=== PATIENT | male | born 1980 | race Caucasian/White ===

== ENCOUNTER 2018-01-25 18:00 | Inpatient (IN) | payer BC, OTHER ==
[2018-01-25] MEDS ORDERED: Albuterol/Ipratropium 3.0-0.5 MG/3 ML Neb Soln NEB ONE (18:37)
--- NOTE | 2018-01-25 18:41 | EDM.PDOC ---
ED HPI GENERAL MEDICAL PROBLEM - General Chief Complaint: Respiratory Problem Stated Complaint: cough, fever, SOB Time Seen by Provider: 01/25/18 18:29 Source of Information: Reports: Patient History Limitations: Reports: No Limitations - History of Present Illness INITIAL COMMENTS - FREE TEXT/NARRATIVE: Patient presents with cough, fever, dyspnea and weakness that started 5 days ago and has progressed and worsened steadily since then. He has a 20 year smoking history but quit smoking 10 days ago[address]ies street drug use since high school days. He has had pneumonia two years ago which required a week in the hospital. Denies any chronic lung problems. He has type I DM and has been on insulin since age 6. - Related Data Allergies Allergy/AdvReac Type Severity Reaction Status Date / Time No Known Drug Allergies Allergy Cannot Verified 01/25/18 18:15 Remember Home Meds: Home Meds Insulin Aspart [Novolog] 100 unit SQ ASDIRECTED 01/25/18 [History] Insulin NPH Human Isophane [Novolin N] 10 unit SQ BID 01/25/18 [History] Past Medical History HEENT History: Reports: Hard of Hearing Respiratory History: Reports: Asthma, Other (See Below) Other Respiratory History: Hx of fiberglass dust induced asthma; he states it's now better Gastrointestinal History: Reports: GERD Genitourinary History: Reports: Chronic Renal Insuffiency Musculoskeletal History: Reports: Fracture, Other (See Below) Other Musculoskeletal History: right hand, left arm Neurological History: Reports: Neuropathy, Diabetic Endocrine/Metabolic History: Reports: Diabetes, Type I Hematologic History: Reports: None Dermatologic History: Reports: Other (See Below) Other Dermatologic History: Pigmentation issues. - Infectious Disease History Infectious Disease History: Reports: Chicken Pox, Influenza - Past Surgical History GI Surgical History: Reports: Hernia Repair/Other Social & Family History - Family History Family Medical History: Noncontributory ED ROS GENERAL - Review of Systems Review Of Systems: See Below Constitutional: Reports: Fever, Chills, Malaise, Weakness, Fatigue, Decreased Appetite HEENT: Denies: Ear Discharge, Ear Pain, Throat Pain Respiratory: Reports: Shortness of Breath, Wheezing, Cough, Sputum Cardiovascular: Reports: Lightheadedness. Denies: Chest Pain, Blood Pressure Problem, Syncope GI/Abdominal: Reports: Diarrhea. Denies: Abdominal Pain, Constipation, Vomiting : Reports: No Symptoms. Denies: Dysuria, Flank Pain Musculoskeletal: Reports: No Symptoms Skin: Reports: Pallor. Denies: Cyanosis, Jaundice, Mottled Neurological: Denies: Confusion, Dizziness, Headache, Seizure, Syncope Psychiatric: Denies: Agitation, Anxiety, Confusion Hematologic/Lymphatic: Denies: Anemia ED EXAM, GENERAL - Physical Exam Exam: See Below Exam Limited By: No Limitations General Appearance: Alert, Mild Distress, Thin Eye Exam: Bilateral Eye: EOMI, Normal Inspection, PERRL Ears: Normal External Exam, Hearing Grossly Normal Nose: Normal Inspection, No Blood Throat/Mouth: Normal Inspection, Normal Lips, Normal Voice, No Airway Compromise Head: Atraumatic, Normocephalic Neck: Normal Inspection, Full Range of Motion Respiratory/Chest: Crackles, Rhonchi, Wheezing. No: Stridor Cardiovascular: Regular Rate, Rhythm, No Murmur GI/Abdominal: Normal Bowel Sounds, Soft, Non-Tender, No Organomegaly, No Distention Back Exam: Normal Inspection, Full Range of Motion Extremities: Normal Inspection, Normal Range of Motion, No Pedal Edema Neurological: Alert, Oriented, Normal Cognition, No Motor/Sensory Deficits Psychiatric: Normal Affect, Normal Mood Skin Exam: Warm, Dry, Pallor Course - Vital Signs Last Recorded V/S: Last Vital Signs Temp 98.9 F 01/25/18 18:10 Pulse 95 01/25/18 18:10 Resp 24 H 01/25/18 18:10 BP 130/75 01/25/18 18:10 Pulse Ox 80 L 01/25/18 18:10 - Orders/Labs/Meds Orders: Active Orders 24 hr Category Date Time Status RT Aerosol Therapy [RC] ASDIRECTED Care 01/25/18 18:37 Ordered CXR [Chest 2V] [CR] Stat Exams 01/25/18 18:18 Ordered CULTURE BLOOD [BC] Stat Lab 01/25/18 18:20 Received CULTURE BLOOD [BC] Stat Lab 01/25/18 18:20 Received Labs: Laboratory Tests 01/25/18 01/25/18 01/25/18 Range/Units 18:20 18:20 18:20 WBC 16.1 H D (5.0-10.0) 10^3/uL RBC 3.94 L (4.50-6.00) 10^6/uL Hgb 11.2 L (13.0-17.0) g/dL Hct 32.4 L (40.0-52.0) % MCV 82.1 D (82.0-92.0) fL MCH 28.4 (27.0-31.0) pg MCHC 34.6 (32.0-36.0) g/dL RDW 11.5 (11.5-14.5) % Plt Count 298 (150-300) 10^3/uL MPV 8.3 (7.4-10.4) fL Neut % (Auto) 89.7 H (50.0-70.0) % Lymph % (Auto) 5.4 L (20.0-40.0) % Isabella % (Auto) 4.1 (2.0-8.0) % Eos % (Auto) 0.5 L (1.0-3.0) % Baso % (Auto) 0.3 (0.0-1.0) % Neut # (Auto) 14.4 H (2.5-7.0) 10^3/uL Lymph # (Auto) 0.9 L (1.0-4.0) 10^3/uL Isabella # (Auto) 0.7 (0.1-0.8) 10^3/uL Eos # (Auto) 0.1 (0.1-0.3) 10^3/uL Baso # (Auto) 0.0 (0.0-0.1) 10^3/uL D-Dimer, Quantitative 124 (<400) ng/mL Sodium 136 D (136-145) mmol/L Potassium 4.7 (3.3-5.3) mmol/L Chloride 99 (98-115) mmol/L Carbon Dioxide 21.3 (21.0-32.0) mmol/L Anion Gap 20.4 H (5-15) mmol/L BUN 16 (6-25) mg/dL Creatinine 1.26 H (0.51-1.17) mg/dL Est Cr Clr Drug Dosing TNP Estimated GFR (MDRD) > 60 mL/min Glucose 491 mg/dL Lactic Acid (0.4-2.0) mmol/L Calcium 8.3 L (8.7-10.3) mg/dL 01/25/18 Range/Units 18:20 WBC (5.0-10.0) 10^3/uL RBC (4.50-6.00) 10^6/uL Hgb (13.0-17.0) g/dL Hct (40.0-52.0) % MCV (82.0-92.0) fL MCH (27.0-31.0) pg MCHC (32.0-36.0) g/dL RDW (11.5-14.5) % Plt Count (150-300) 10^3/uL MPV (7.4-10.4) fL Neut % (Auto) (50.0-70.0) % Lymph % (Auto) (20.0-40.0) % Isabella % (Auto) (2.0-8.0) % Eos % (Auto) (1.0-3.0) % Baso % (Auto) (0.0-1.0) % Neut # (Auto) (2.5-7.0) 10^3/uL Lymph # (Auto) (1.0-4.0) 10^3/uL Isabella # (Auto) (0.1-0.8) 10^3/uL Eos # (Auto) (0.1-0.3) 10^3/uL Baso # (Auto) (0.0-0.1) 10^3/uL D-Dimer, Quantitative (<400) ng/mL Sodium (136-145) mmol/L Potassium (3.3-5.3) mmol/L Chloride (98-115) mmol/L Carbon Dioxide (21.0-32.0) mmol/L Anion Gap (5-15) mmol/L BUN (6-25) mg/dL Creatinine (0.51-1.17) mg/dL Est Cr Clr Drug Dosing Estimated GFR (MDRD) mL/min Glucose mg/dL Lactic Acid 1.6 (0.4-2.0) mmol/L Calcium (8.7-10.3) mg/dL Meds: Medications Discontinued Medications Generic Name Dose Route Start Last Admin Trade Name Freq PRN Reason Stop Dose Admin Albuterol/Ipratropium 3 ml 01/25/18 18:37 01/25/18 18:51 Duoneb 3.0-0.5 Mg/3 Ml NEB 01/25/18 18:38 3 ml ONETIME ONE Administration - Re-Assessments/Exams Free Text/Narrative Re-Assessment/Exam: 01/25/18 19:37 Xray shows early basilar peumonia. WBC and ANC are elevated. Dimer and Lactate within normal limits. Sputum and blood cultures are pending. O2 sats require support with oxygen via NC at 3 liters to maintain in low to mid 90's. DuoNeb helped some. Started Rocephin 1 gm IV. Discussed case with Dr. Josesito Silva who accepted for admission. Patient agreeable with admission for treatment after discussion of findings. 01/25/18 19:50 Before leaving ER will treat with Novolog 10 units for the glucose of 491. Departure - Departure Time of Disposition: 19:31 Disposition: Admitted As Inpatient 68 Condition: Good Clinical Impression: Community acquired bacterial pneumonia Type I diabetes mellitus Qualifiers: Diabetes mellitus complication status: with hyperglycemia Qualified Code(s): E10.65 - Type 1 diabetes mellitus with hyperglycemia - Discharge Information Forms: ED Department Discharge - My Orders Last 24 Hours: My Active Orders 01/25/18 18:18 CXR [Chest 2V] [CR] Stat 01/25/18 18:20 CULTURE BLOOD [BC] Stat CULTURE BLOOD [BC] Stat 01/25/18 18:37 RT Aerosol Therapy [RC] ASDIRECTED - Assessment/Plan Last 24 Hours: My Active Orders 01/25/18 18:18 CXR [Chest 2V] [CR] Stat 01/25/18 18:20 CULTURE BLOOD [BC] Stat CULTURE BLOOD [BC] Stat 01/25/18 18:37 RT Aerosol Therapy [RC] ASDIRECTED
[2018-01-25 18:48] LABS: ANION GAP 20.4 mmol/L (5-15); CHLORIDE,CL 99 mmol/L (98-115); SODIUM,NA 136 mmol/L (136-145)
[2018-01-25] MEDS ORDERED: cefTRIAXone 1 GM Vial IVPUSH ONE ×2 (19:17→20:32)
[2018-01-25] MEDS ORDERED: Azithromycin 200 MG/5 ML Susp 15 ML Bottle PO ONE ×2 (19:35→20:31)
[2018-01-25] MEDS ORDERED: Insulin Aspart 100 Units/ML 3 ML Pen SUBCUT ONE ×2 (19:45→21:53)
[2018-01-25] MEDS ORDERED: Azithromycin 500 MG in Sodium Chloride 0.9% 250 ML IV ONE (20:50)
[2018-01-25] MEDS ORDERED: Albuterol/Ipratropium 3.0-0.5 MG/3 ML Neb Soln NEB PRN (20:55)
[2018-01-25] MEDS ORDERED: Azithromycin 500 MG in Sodium Chloride 0.9% 250 ML IV SCH (21:00)
[2018-01-25] MEDS ORDERED: Nicotine 14 MG/24 Hr Patch TRDERM PRN (21:17)
[2018-01-25] MEDS: Insulin Aspart 100 Units/ML 3 ML Pen SUBCUT SCH (21:52)
[2018-01-25] MEDS ORDERED: guaiFENesin/Dextromethorphan 100-10 MG/5 ML Soln 5 ML Cup PO PRN (22:27)
[2018-01-26] MEDS: Acetaminophen 325 MG Tab PO PRN (03:15)
[2018-01-26] MEDS ORDERED: Insulin NPH/Insulin Regular,Human 70-30 100 Units/ML 10 ML Vial SUBCUT SCH (07:30)
[2018-01-26] MEDS: Insulin Aspart 100 Units/ML 3 ML Pen SUBCUT SCH ×4 (07:40→21:41)
[2018-01-26 08:10] LABS: ANION GAP 19.7 mmol/L (5-15); CHLORIDE,CL 99 mmol/L (98-115); SODIUM,NA 136 mmol/L (136-145)
--- NOTE | 2018-01-26 10:59 | PCM.HP ---
H&P History of Present Illness - General Date of Service: 01/26/18 Admit Problem/Dx: Admission Diagnosis/Problem Admission Diagnosis/Problem Community acquired pneumonia Source of Information: Patient, Old Records, RN - Related Data Allergies/Adverse Reactions: Allergies Allergy/AdvReac Type Severity Reaction Status Date / Time No Known Drug Allergies Allergy Cannot Verified 01/25/18 18:15 Remember Home Medications: Home Meds Insulin Aspart [Novolog] 100 unit SQ ASDIRECTED 01/25/18 [History] Insulin Glarg,Human.Rec.Analog [Lantus Solostar] 20 unit SQ DAILY #15 ml [Rx] Insulin NPH Hum/Reg Insulin Hm [Humulin 70-30 Vial] 25 units SQ BIDAC #20 ml 01/06 [Rx] Past Medical History HEENT History: Reports: Hard of Hearing Respiratory History: Reports: Asthma, Other (See Below) Other Respiratory History: Hx of fiberglass dust induced asthma; he states it's now better Gastrointestinal History: Reports: GERD Genitourinary History: Reports: Chronic Renal Insuffiency Musculoskeletal History: Reports: Fracture, Other (See Below) Other Musculoskeletal History: right hand, left arm Neurological History: Reports: Neuropathy, Diabetic Endocrine/Metabolic History: Reports: Diabetes, Type I Hematologic History: Reports: None Dermatologic History: Reports: Other (See Below) Other Dermatologic History: Pigmentation issues. - Infectious Disease History Infectious Disease History: Reports: Chicken Pox, Influenza - Past Surgical History GI Surgical History: Reports: Hernia Repair/Other Social & Family History - Family History HEENT: Reports: None Cardiac: Reports: None Respiratory: Reports: None GI: Reports: None : Reports: None OBGYN: Reports: None Musculoskeletal: Reports: None Neurological: Reports: None Psychiatric: Reports: None Endocrine/Metabolic: Reports: None Hematologic: Reports: None Immunologic: Reports: None Dermatologic: Reports: None Oncologic: Reports: None - Tobacco Use Smoking Status *Q: Former Smoker Packs/Tins Daily: 0.5 Used Tobacco, but Quit: Yes Month/Year Tobacco Last Used: 01/2018 - Caffeine Use Caffeine Use: Reports: Coffee, Soda - Alcohol Use Days Per Week of Alcohol Use: 3 Number of Drinks Per Day: 1 Total Drinks Per Week: 3 - Recreational Drug Use Recreational Drug Use: No H&P Review of Systems - Review of Systems: Review Of Systems: See Below General: Reports: Fatigue, Weight Loss (10 wt loss past few days. ) HEENT: Reports: Sinus Congestion Pulmonary: Reports: Cough, Sputum Cardiovascular: Reports: No Symptoms Gastrointestinal: Reports: Anorexia. Denies: Nausea, Vomiting Genitourinary: Reports: No Symptoms Musculoskeletal: Reports: No Symptoms Skin: Reports: No Symptoms Psychiatric: Reports: No Symptoms Neurological: Reports: No Symptoms Hematologic/Lymphatic: Denies: Swollen Glands Immunologic: Reports: No Symptoms Exam - Exam Exam: See Below - Vital Signs Vital Signs: Last Vital Signs Temp 98.5 F 01/26/18 06:16 Pulse 93 01/26/18 06:16 Resp 22 H 01/26/18 06:16 BP 116/74 01/26/18 06:16 Pulse Ox 95 01/26/18 06:16 Weight: 130 lb 8 oz - Exam Quality Assessment: Supplemental Oxygen General: Alert, Oriented, Cooperative. No: Mild Distress HEENT: No: Mucosa Moist & Loda (dry mucous membranes ), Scleral Icterus Neck: Supple Lungs: Wheezing (Slight expiratory wheeze, Dull precaution right lower lobe, normal excursion). No: Rhonchi GI/Abdominal Exam: Soft Extremities: No Pedal Edema Peripheral Pulses: 2+: Radial (L), Radial (R) Skin: Warm, Dry, Intact Neurological: Cranial Nerves Intact, Normal Speech, Normal Tone Neuro Extensive - Mental Status: Alert, Oriented x3, Normal Mood/Affect, Normal Cognition Neuro Extensive - Motor, Sensory, Reflexes: CN II-XII Intact Psychiatric: Alert, Normal Affect, Normal Mood - Patient Data Lab Results Last 24 hrs: Laboratory Results - last 24 hr 01/25/18 01/25/18 01/25/18 Range/Units 18:20 18:20 18:20 WBC 16.1 H D (5.0-10.0) 10^3/uL RBC 3.94 L (4.50-6.00) 10^6/uL Hgb 11.2 L (13.0-17.0) g/dL Hct 32.4 L (40.0-52.0) % MCV 82.1 D (82.0-92.0) fL MCH 28.4 (27.0-31.0) pg MCHC 34.6 (32.0-36.0) g/dL RDW 11.5 (11.5-14.5) % Plt Count 298 (150-300) 10^3/uL MPV 8.3 (7.4-10.4) fL Neut % (Auto) 89.7 H (50.0-70.0) % Lymph % (Auto) 5.4 L (20.0-40.0) % [place]ick[place] % (Auto) 4.1 (2.0-8.0) % Eos % (Auto) 0.5 L (1.0-3.0) % Baso % (Auto) 0.3 (0.0-1.0) % Neut # (Auto) 14.4 H (2.5-7.0) 10^3/uL Lymph # (Auto) 0.9 L (1.0-4.0) 10^3/uL [place] # (Auto) 0.7 (0.1-0.8) 10^3/uL Eos # (Auto) 0.1 (0.1-0.3) 10^3/uL Baso # (Auto) 0.0 (0.0-0.1) 10^3/uL D-Dimer, Quantitative 124 (<400) ng/mL Sodium 136 D (136-145) mmol/L Potassium 4.7 (3.3-5.3) mmol/L Chloride 99 (98-115) mmol/L Carbon Dioxide 21.3 (21.0-32.0) mmol/L Anion Gap 20.4 H (5-15) mmol/L BUN 16 (6-25) mg/dL Creatinine 1.26 H (0.51-1.17) mg/dL Est Cr Clr Drug Dosing TNP Estimated GFR (MDRD) > 60 mL/min Glucose 491 mg/dL POC Glucose (74-106) mg/dl Hemoglobin A1c (4.3-5.7) % Lactic Acid (0.4-2.0) mmol/L Calcium 8.3 L (8.7-10.3) mg/dL Total Bilirubin (0.2-1.0) mg/dL AST (15-37) U/L ALT (12-78) U/L Alkaline Phosphatase (46-116) IU/L Total Protein (6.4-8.2) g/dL Albumin (3.00-4.80) g/dL Triglycerides (30-150) mg/dL Cholesterol (100-199) mg/dL LDL Cholesterol, Calc (0-100) mg/dL HDL Cholesterol (40-60) mg/dL TSH, Ultra Sensitive (0.340-4.820) uIU/mL 01/25/18 01/25/18 01/25/18 Range/Units 18:20 21:24 22:57 WBC (5.0-10.0) 10^3/uL RBC (4.50-6.00) 10^6/uL Hgb (13.0-17.0) g/dL Hct (40.0-52.0) % MCV (82.0-92.0) fL MCH (27.0-31.0) pg MCHC (32.0-36.0) g/dL RDW (11.5-14.5) % Plt Count (150-300) 10^3/uL MPV (7.4-10.4) fL Neut % (Auto) (50.0-70.0) % Lymph % (Auto) (20.0-40.0) % [place] % (Auto) (2.0-8.0) % Eos % (Auto) (1.0-3.0) % Baso % (Auto) (0.0-1.0) % Neut # (Auto) (2.5-7.0) 10^3/uL Lymph # (Auto) (1.0-4.0) 10^3/uL [place] # (Auto) (0.1-0.8) 10^3/uL Eos # (Auto) (0.1-0.3) 10^3/uL Baso # (Auto) (0.0-0.1) 10^3/uL D-Dimer, Quantitative (<400) ng/mL Sodium (136-145) mmol/L Potassium (3.3-5.3) mmol/L Chloride (98-115) mmol/L Carbon Dioxide (21.0-32.0) mmol/L Anion Gap (5-15) mmol/L BUN (6-25) mg/dL Creatinine (0.51-1.17) mg/dL Est Cr Clr Drug Dosing Estimated GFR (MDRD) mL/min Glucose mg/dL POC Glucose 497 H 399 H (74-106) mg/dl Hemoglobin A1c (4.3-5.7) % Lactic Acid 1.6 (0.4-2.0) mmol/L Calcium (8.7-10.3) mg/dL Total Bilirubin (0.2-1.0) mg/dL AST (15-37) U/L ALT (12-78) U/L Alkaline Phosphatase (46-116) IU/L Total Protein (6.4-8.2) g/dL Albumin (3.00-4.80) g/dL Triglycerides (30-150) mg/dL Cholesterol (100-199) mg/dL LDL Cholesterol, Calc (0-100) mg/dL HDL Cholesterol (40-60) mg/dL TSH, Ultra Sensitive (0.340-4.820) uIU/mL 01/26/18 01/26/18 01/26/18 Range/Units 07:10 07:10 07:35 WBC 15.1 H (5.0-10.0) 10^3/uL RBC 3.76 L (4.50-6.00) 10^6/uL Hgb 10.5 L (13.0-17.0) g/dL Hct 31.3 L (40.0-52.0) % MCV 83.3 (82.0-92.0) fL MCH 27.9 (27.0-31.0) pg MCHC 33.4 (32.0-36.0) g/dL RDW 11.4 L (11.5-14.5) % Plt Count 328 H (150-300) 10^3/uL MPV 8.4 (7.4-10.4) fL Neut % (Auto) 79.4 H (50.0-70.0) % Lymph % (Auto) 14.8 L (20.0-40.0) % [place]ickory % (Auto) 4.6 (2.0-8.0) % Eos % (Auto) 0.6 L (1.0-3.0) % Baso % (Auto) 0.6 (0.0-1.0) % Neut # (Auto) 12.0 H (2.5-7.0) 10^3/uL Lymph # (Auto) 2.2 (1.0-4.0) 10^3/uL Hickory # (Auto) 0.7 (0.1-0.8) 10^3/uL Eos # (Auto) 0.1 (0.1-0.3) 10^3/uL Baso # (Auto) 0.1 (0.0-0.1) 10^3/uL D-Dimer, Quantitative (<400) ng/mL Sodium 136 (136-145) mmol/L Potassium 4.7 (3.3-5.3) mmol/L Chloride 99 (98-115) mmol/L Carbon Dioxide 22.0 (21.0-32.0) mmol/L Anion Gap 19.7 H (5-15) mmol/L BUN 19 (6-25) mg/dL Creatinine 1.22 H (0.51-1.17) mg/dL Est Cr Clr Drug Dosing 70.76 Estimated GFR (MDRD) > 60 mL/min Glucose 372 mg/dL POC Glucose 324 H (74-106) mg/dl Hemoglobin A1c 10.8 H (4.3-5.7) % Lactic Acid (0.4-2.0) mmol/L Calcium 8.0 L (8.7-10.3) mg/dL Total Bilirubin 0.5 (0.2-1.0) mg/dL AST 14 L (15-37) U/L ALT 20 (12-78) U/L Alkaline Phosphatase 111 (46-116) IU/L Total Protein 6.7 (6.4-8.2) g/dL Albumin 2.91 L (3.00-4.80) g/dL Triglycerides 38 (30-150) mg/dL Cholesterol 76 L (100-199) mg/dL LDL Cholesterol, Calc 33 (0-100) mg/dL HDL Cholesterol 35 L (40-60) mg/dL TSH, Ultra Sensitive 0.590 (0.340-4.820) uIU/mL Result Diagrams: 01/27/18 07:35 01/26/18 12:25 Problem List Initiated/Reviewed/Updated: Yes Orders Last 24hrs: Active Orders 24 hr Category Date Time Status Patient Status [ADT] Routine ADT 01/25/18 20:49 Ordered Blood Glucose Check, Bedside [RC] QIDACANDBED Care 01/25/18 20:54 Active Intake and Output [RC] 1400,2200,0600 Care 01/25/18 20:50 Active Oxygen Therapy [RC] PRN Care 01/25/18 20:50 Active Pulse Oximetry [RC] PRN Care 01/25/18 20:50 Active RT Aerosol Therapy [RC] ASDIRECTED Care 01/25/18 20:55 Active Up With Assistance [RC] ASDIRECTED Care 01/25/18 20:49 Active Vital Signs [RC] 0300,0700,1100,1500,1900,2300 Care 01/25/18 20:49 Active [employer] Diet [DIET] Diet 01/26/18 Breakfast Active CULTURE BLOOD [BC] Stat Lab 01/25/18 18:20 Received CULTURE BLOOD [BC] Stat Lab 01/25/18 19:30 Received RESPIRATORY CULT [MREF] Stat Lab 01/25/18 19:20 Received Acetaminophen [Tylenol] Med 01/25/18 20:49 Active 650 mg PO Q4H PRN Albuterol/Ipratropium [DuoNeb 3.0-0.5 MG/3 ML] Med 01/25/18 20:55 Active 3 ml NEB Q4HRRT PRN Azithromycin [Zithromax] 500 mg Med 01/26/18 21:00 Active Sodium Chloride 0.9% [Normal Saline] 250 ml IV Q24H Dextromethorphan/guaiFENesin [Robitussin DM] Med 01/25/18 22:27 Active 10 ml PO Q4H PRN Insulin Aspart [NovoLOG] Med 01/25/18 22:00 Active See Protocol SUBCUT WITHMEALSANDBED Insulin NPH/Insulin Reg,Human [HumuLIN 70-30] Med 01/26/18 07:30 Active 10 units SUBCUT BIDAC Nicotine [Habitrol] Med 01/25/18 21:17 Active 14 mg TRDERM DAILY PRN cefTRIAXone [Rocephin] Med 01/26/18 21:00 Active 1 gm IVPUSH Q24H Isolation [COMM] Routine Oth 01/26/18 01:28 Ordered Resuscitation Status Routine Resus Stat 01/25/18 20:49 Ordered Medication Orders Acetaminophen (Tylenol) 650 mg PO Q4H PRN PRN Reason: analgesia/fever Last Admin: 01/26/18 03:15 Dose: 650 mg Albuterol/Ipratropium (Duoneb 3.0-0.5 Mg/3 Ml) 3 ml NEB Q4HRRT PRN PRN Reason: Wheezing Ceftriaxone Sodium (Rocephin) 1 gm IVPUSH Q24H [place] Guaifenesin/Phenylephrine HCl (Robitussin Dm) 10 ml PO Q4H PRN PRN Reason: Cough Azithromycin 500 mg/ Sodium (Chloride) 250 mls @ 250 mls/hr IV Q24H [place] Insulin Aspart (Novolog) 0 unit SUBCUT WITHMEALSANDBED [place]RI[place]; Protocol Last Admin: 01/26/18 07:40 Dose: 10 units Admin: 01/25/18 21:52 Dose: Insulin Human Isoph/Insulin Regular (Humulin 70-30) 10 units SUBCUT BIDAC [place] Nicotine (Habitrol) 14 mg TRDERM DAILY PRN PRN Reason: Other Assessment/Plan Comment:: HISTORY OF PRESENT ILLNESS This 37-year-old gentleman was admitted to the ED due to cough shortness of breath and suspected pneumonia. She stated he started getting sick with cough and fever approximate 6 days ago however not seek care due to the lack of insurance. Although he stated he felt better 2 days ago he suddenly became worse with ongoing cough, mucus production, shortness of breath fever and weakness. Patient lost 10 pounds past few days however denies vomiting he did have one or 2 episodes of diarrhea. He was admitted September [address] [facility] due to RLL pneumonia. No ill contacts. Patient states this is the third time he has had pneumonia in recent years. [id number] history smoker quit last week. He does have a history of occupational reactive airway disease while working with [employer] however has been quite stable--denies ever being placed on occupational surveillance. He does travel around from job to job and recently moved from [place]. Patient does have type 1 diabetes mellitus due to lack of insurance having to switch to cheaper insulins admits to out-of- control blood sugars. Pertinent findings/workup in ED POX 80's White count 16.1, neutrophilia Chest x-ray early basilar pneumonia Tachycardia RR 22 Temperature, 100.4 D-dimer 124 Primary problems Pneumonia, POA, CAP Dehydration, moderate, insensible loss T1DM, poorly controlled, hemoglobin A1c> 10% Chronic problems Nicotine dependence, Habitrol MDM/plan Continue inpatient disposition, azithromycin along with beta-lactam IV antibiotics. Oxygen, needs improved glucose control both short and long-term start back on long-acting insulin Levimir reduce dose to 14 units, along with insulin 1 unit:CHO choice today, with individualized sliding scale. Avoid too tightly controlled while acutely ill. Blood cultures, sputum culture, PO and IV fluids, Add HIV testing, MRSA nasal swab procalcitonin and urine for Legionella. Pharmacy consultation regarding patient's OTC insulin. Discuss with business office regarding insurance window. Labs in a.m., repeat chest x- ray after hydration in the morning. Discharge planning regarding patient's insulin. Assuming insurance coverage; --Lantus 20 units NovoLog 15 units TID/prandial coverage as a start however will likely need to be titrated up as outpatient. If No commercial insurance available --Humulin 70/30 vial 35 units BIDAC. However far from optimal
[2018-01-26] MEDS ORDERED: Insulin Regular, Human 100 Units/ML 10 ML Vial SUBCUT ONE (12:14)
[2018-01-26] MEDS: Insulin Detemir 100 Units/ML 3 ML Pen SUBCUT SCH (12:21)
[2018-01-26] MEDS: Sodium Chloride 0.9% 1,000 ML IV SCH (12:34)
[2018-01-26 12:54] LABS: ANION GAP 17.6 mmol/L (5-15); CHLORIDE,CL 94 mmol/L (98-115); SODIUM,NA 130 mmol/L (136-145)
[2018-01-26 15:16] LABS: O2 DELIVERY DEVICE NASAL CANNULA
[2018-01-26 15:17] LABS: BASE EXCESS ARTERIAL -4 mmol/L (-2-3); BICARBONATE,ARTERIAL 20.8 mmol/L (22-26); O2 SATURATION ARTERIAL 93 % (95-98); PCO2 ARTERIAL 33 mmHG (35-45); PO2 ARTERIAL 68 mmHG (80-105)
[2018-01-26] MEDS ORDERED: Albuterol/Ipratropium 3.0-0.5 MG/3 ML Neb Soln NEB SCH (16:00)
[2018-01-26] MEDS: cefTRIAXone 1 GM Vial IVPUSH SCH (20:05)
[2018-01-26] MEDS: guaiFENesin 600 MG Tab.ER PO SCH (20:05)
[2018-01-26] MEDS: Azithromycin 500 MG in Sodium Chloride 0.9% 250 ML IV SCH (20:11)
[2018-01-26] MEDS ORDERED: Insulin Aspart 100 Units/ML 3 ML Pen SUBCUT ONE (21:39)
[2018-01-27] MEDS: Acetaminophen 325 MG Tab PO PRN ×3 (06:26→22:20)
[2018-01-27] MEDS: Insulin Detemir 100 Units/ML 3 ML Pen SUBCUT SCH (08:08)
[2018-01-27] MEDS: guaiFENesin 600 MG Tab.ER PO SCH ×2 (08:08→20:15)
[2018-01-27] MEDS: Insulin Aspart 100 Units/ML 3 ML Pen SUBCUT SCH ×4 (08:10→21:18)
[2018-01-27] MEDS: Sodium Chloride 0.9% 1,000 ML IV SCH ×2 (08:14→17:58)
--- NOTE | 2018-01-27 09:11 | PCM.PN ---
- General Info Date of Service: 01/27/18 Subjective Update: Mu does feel slightly better today however still requiring 1 L of oxygen nasal cannula. No shortness of breath blood sugars improving Functional Status: Reports: Pain Controlled, Tolerating Diet. Denies: Ambulating - Review of Systems General: Reports: Malaise, Appetite. Denies: Fever, Chills, Night Sweats HEENT: Reports: Other (Nosebleed yesterday due to coughing however resolved after slight tamponade) Pulmonary: Reports: Cough, Sputum (Significant copious amount sputum yesterday) . Denies: Shortness of Breath, Wheezing Cardiovascular: Denies: Chest Pain, Orthopnea, Edema Gastrointestinal: Reports: No Symptoms Genitourinary: Reports: No Symptoms Musculoskeletal: Reports: No Symptoms Skin: Reports: No Symptoms Neurological: Reports: No Symptoms Psychiatric: Reports: No Symptoms - Patient Data Vitals - Most Recent: Last Vital Signs Temp 99.1 F 01/27/18 06:26 Pulse 94 01/27/18 06:16 Resp 16 01/27/18 06:16 BP 126/76 01/27/18 06:16 Pulse Ox 94 L 01/27/18 07:30 Weight - Most Recent: 130 lb 8 oz I&O - Last 24 Hours: Intake & Output 01/26/18 01/27/18 01/27/18 22:59 06:59 14:59 Intake Total 1002 765 Balance 1002 765 Lab Results Last 24 Hours: Laboratory Results - last 24 hr 01/26/18 01/26/18 01/26/18 Range/Units 11:16 11:30 11:30 WBC (5.0-10.0) 10^3/uL RBC (4.50-6.00) 10^6/uL Hgb (13.0-17.0) g/dL Hct (40.0-52.0) % MCV (82.0-92.0) fL MCH (27.0-31.0) pg MCHC (32.0-36.0) g/dL RDW (11.5-14.5) % Plt Count (150-300) 10^3/uL MPV (7.4-10.4) fL Neut % (Auto) (50.0-70.0) % Lymph % (Auto) (20.0-40.0) % [place] % (Auto) (2.0-8.0) % Eos % (Auto) (1.0-3.0) % Baso % (Auto) (0.0-1.0) % Neut # (Auto) (2.5-7.0) 10^3/uL Lymph # (Auto) (1.0-4.0) 10^3/uL [place] # (Auto) (0.1-0.8) 10^3/uL Eos # (Auto) (0.1-0.3) 10^3/uL Baso # (Auto) (0.0-0.1) 10^3/uL ABG pH (7.35-7.45) ABG pCO2 (35-45) mmHG ABG pO2 (80-105) mmHG ABG HCO3 (22-26) mmol/L ABG Total CO2 (23-27) mmol/L ABG O2 Saturation (95-98) % ABG Base Excess (-2-3) mmol/L O2 Delivery Device Sodium (136-145) mmol/L Potassium (3.3-5.3) mmol/L Chloride (98-115) mmol/L Carbon Dioxide (21.0-32.0) mmol/L Anion Gap (5-15) mmol/L BUN (6-25) mg/dL Creatinine (0.51-1.17) mg/dL Est Cr Clr Drug Dosing mL/min Estimated GFR (MDRD) mL/min Glucose 551 mg/dL POC Glucose > 500 H (74-106) mg/dl Calcium (8.7-10.3) mg/dL Procalcitonin 3.06 H (<0.10) ng/mL Specimen Type Urine Color (YELLOW) Urine Appearance (CLEAR) Urine pH (5.0-9.0) Ur Specific [place] (1.005-1.030) Urine Protein (NEGATIVE) mg/dL Urine Glucose (UA) (NEGATIVE) mg/dL Urine Ketones (NEGATIVE) mg/dL Urine Occult Blood (NEGATIVE) Urine Nitrite (NEGATIVE) Urine Bilirubin (NEGATIVE) Urine Urobilinogen (0.2-1.0) E.U./dL Ur Leukocyte Esterase (NEGATIVE) Urine RBC /HPF Urine WBC /HPF Ur Epithelial Cells /LPF Urine Bacteria (NONE TO FEW) /HPF 01/26/18 01/26/1818 Range/Units 12:19 12:25 13:36 WBC (5.0-10.0) 10^3/uL RBC (4.50-6.00) 10^6/uL Hgb (13.0-17.0) g/dL Hct (40.0-52.0) % MCV (82.0-92.0) fL MCH (27.0-31.0) pg MCHC (32.0-36.0) g/dL RDW (11.5-14.5) % Plt Count (150-300) 10^3/uL MPV (7.4-10.4) fL Neut % (Auto) (50.0-70.0) % Lymph % (Auto) (20.0-40.0) % [place] % (Auto) (2.0-8.0) % Eos % (Auto) (1.0-3.0) % Baso % (Auto) (0.0-1.0) % Neut # (Auto) (2.5-7.0) 10^3/uL Lymph # (Auto) (1.0-4.0) 10^3/uL [place] # (Auto) (0.1-0.8) 10^3/uL Eos # (Auto) (0.1-0.3) 10^3/uL Baso # (Auto) (0.0-0.1) 10^3/uL ABG pH (7.35-7.45) ABG pCO2 (35-45) mmHG ABG pO2 (80-105) mmHG ABG HCO3 (22-26) mmol/L ABG Total CO2 (23-27) mmol/L ABG O2 Saturation (95-98) % ABG Base Excess (-2-3) mmol/L O2 Delivery Device Sodium 130 L (136-145) mmol/L Potassium 5.0 (3.3-5.3) mmol/L Chloride 94 L (98-115) mmol/L Carbon Dioxide 23.4 (21.0-32.0) mmol/L Anion Gap 17.6 H (5-15) mmol/L BUN 22 (6-25) mg/dL Creatinine 1.11 (0.51-1.17) mg/dL Est Cr Clr Drug Dosing 77.77 mL/min Estimated GFR (MDRD) > 60 mL/min Glucose 603 H* mg/dL POC Glucose > 500 H (74-106) mg/dl Calcium 8.2 L (8.7-10.3) mg/dL Procalcitonin (<0.10) ng/mL Specimen Type Urinvoid Urine Color Yellow (YELLOW) Urine Appearance Clear (CLEAR) Urine pH 6.0 (5.0-9.0) Ur Specific [place] 1.010 (1.005-1.030) Urine Protein Negative (NEGATIVE) mg/dL Urine Glucose (UA) 500 H (NEGATIVE) mg/dL Urine Ketones 15 H (NEGATIVE) mg/dL Urine Occult Blood Trace-intact H (NEGATIVE) Urine Nitrite Negative (NEGATIVE) Urine Bilirubin Negative (NEGATIVE) Urine Urobilinogen 0.2 (0.2-1.0) E.U./dL Ur Leukocyte Esterase Negative (NEGATIVE) Urine RBC 5-10 H /HPF Urine WBC Not seen /HPF Ur Epithelial Cells Rare /LPF Urine Bacteria Not seen (NONE TO FEW) /HPF 01/26/18 01/26/18 01/26/18 Range/Units 14:31 14:50 15:00 WBC (5.0-10.0) 10^3/uL RBC (4.50-6.00) 10^6/uL Hgb (13.0-17.0) g/dL Hct (40.0-52.0) % MCV (82.0-92.0) fL MCH (27.0-31.0) pg MCHC (32.0-36.0) g/dL RDW (11.5-14.5) % Plt Count (150-300) 10^3/uL MPV (7.4-10.4) fL Neut % (Auto) (50.0-70.0) % Lymph % (Auto) (20.0-40.0) % [place] % (Auto) (2.0-8.0) % Eos % (Auto) (1.0-3.0) % Baso % (Auto) (0.0-1.0) % Neut # (Auto) (2.5-7.0) 10^3/uL Lymph # (Auto) (1.0-4.0) 10^3/uL [place] # (Auto) (0.1-0.8) 10^3/uL Eos # (Auto) (0.1-0.3) 10^3/uL Baso # (Auto) (0.0-0.1) 10^3/uL ABG pH 7.40 (7.35-7.45) ABG pCO2 33 L (35-45) mmHG ABG pO2 68 L (80-105) mmHG ABG HCO3 20.8 L (22-26) mmol/L ABG Total CO2 22 L (23-27) mmol/L ABG O2 Saturation 93 L (95-98) % ABG Base Excess -4 L (-2-3) mmol/L O2 Delivery Device Nasal cannula Sodium (136-145) mmol/L Potassium (3.3-5.3) mmol/L Chloride (98-115) mmol/L Carbon Dioxide (21.0-32.0) mmol/L Anion Gap (5-15) mmol/L BUN (6-25) mg/dL Creatinine (0.51-1.17) mg/dL Est Cr Clr Drug Dosing mL/min Estimated GFR (MDRD) mL/min Glucose mg/dL POC Glucose 462 H 387 H (74-106) mg/dl Calcium (8.7-10.3) mg/dL Procalcitonin (<0.10) ng/mL Specimen Type Urine Color (YELLOW) Urine Appearance (CLEAR) Urine pH (5.0-9.0) Ur Specific [place] (1.005-1.030) Urine Protein (NEGATIVE) mg/dL Urine Glucose (UA) (NEGATIVE) mg/dL Urine Ketones (NEGATIVE) mg/dL Urine Occult Blood (NEGATIVE) Urine Nitrite (NEGATIVE) Urine Bilirubin (NEGATIVE) Urine Urobilinogen (0.2-1.0) E.U./dL Ur Leukocyte Esterase (NEGATIVE) Urine RBC /HPF Urine WBC /HPF Ur Epithelial Cells /LPF Urine Bacteria (NONE TO FEW) /HPF 01/26/18 01/26/18 01/26/18 Range/Units 17:25 21:29 22:56 WBC (5.0-10.0) 10^3/uL RBC (4.50-6.00) 10^6/uL Hgb (13.0-17.0) g/dL Hct (40.0-52.0) % MCV (82.0-92.0) fL MCH (27.0-31.0) pg MCHC (32.0-36.0) g/dL RDW (11.5-14.5) % Plt Count (150-300) 10^3/uL MPV (7.4-10.4) fL Neut % (Auto) (50.0-70.0) % Lymph % (Auto) (20.0-40.0) % [place] % (Auto) (2.0-8.0) % Eos % (Auto) (1.0-3.0) % Baso % (Auto) (0.0-1.0) % Neut # (Auto) (2.5-7.0) 10^3/uL Lymph # (Auto) (1.0-4.0) 10^3/uL [place] # (Auto) (0.1-0.8) 10^3/uL Eos # (Auto) (0.1-0.3) 10^3/uL Baso # (Auto) (0.0-0.1) 10^3/uL ABG pH (7.35-7.45) ABG pCO2 (35-45) mmHG ABG pO2 (80-105) mmHG ABG HCO3 (22-26) mmol/L ABG Total CO2 (23-27) mmol/L ABG O2 Saturation (95-98) % ABG Base Excess (-2-3) mmol/L O2 Delivery Device Sodium (136-145) mmol/L Potassium (3.3-5.3) mmol/L Chloride (98-115) mmol/L Carbon Dioxide (21.0-32.0) mmol/L Anion Gap (5-15) mmol/L BUN (6-25) mg/dL Creatinine (0.51-1.17) mg/dL Est Cr Clr Drug Dosing mL/min Estimated GFR (MDRD) mL/min Glucose mg/dL POC Glucose 333 H 432 H 236 H (74-106) mg/dl Calcium (8.7-10.3) mg/dL Procalcitonin (<0.10) ng/mL Specimen Type Urine Color (YELLOW) Urine Appearance (CLEAR) Urine pH (5.0-9.0) Ur Specific [place] (1.005-1.030) Urine Protein (NEGATIVE) mg/dL Urine Glucose (UA) (NEGATIVE) mg/dL Urine Ketones (NEGATIVE) mg/dL Urine Occult Blood (NEGATIVE) Urine Nitrite (NEGATIVE) Urine Bilirubin (NEGATIVE) Urine Urobilinogen (0.2-1.0) E.U./dL Ur Leukocyte Esterase (NEGATIVE) Urine RBC /HPF Urine WBC /HPF Ur Epithelial Cells /LPF Urine Bacteria (NONE TO FEW) /HPF 01/27/18 01/27/18 Range/Units 07:35 08:00 WBC 13.6 H (5.0-10.0) 10^3/uL RBC 3.60 L (4.50-6.00) 10^6/uL Hgb 10.3 L (13.0-17.0) g/dL Hct 29.4 L (40.0-52.0) % MCV 81.6 L (82.0-92.0) fL MCH 28.6 (27.0-31.0) pg MCHC 35.1 (32.0-36.0) g/dL RDW 11.5 (11.5-14.5) % Plt Count 355 H (150-300) 10^3/uL MPV 8.0 (7.4-10.4) fL Neut % (Auto) 79.5 H (50.0-70.0) % Lymph % (Auto) 13.1 L (20.0-40.0) % [place] % (Auto) 6.0 (2.0-8.0) % Eos % (Auto) 1.2 (1.0-3.0) % Baso % (Auto) 0.2 (0.0-1.0) % Neut # (Auto) 10.8 H (2.5-7.0) 10^3/uL Lymph # (Auto) 1.8 (1.0-4.0) 10^3/uL [place] # (Auto) 0.8 (0.1-0.8) 10^3/uL Eos # (Auto) 0.2 (0.1-0.3) 10^3/uL Baso # (Auto) 0.0 (0.0-0.1) 10^3/uL ABG pH (7.35-7.45) ABG pCO2 (35-45) mmHG ABG pO2 (80-105) mmHG ABG HCO3 (22-26) mmol/L ABG Total CO2 (23-27) mmol/L ABG O2 Saturation (95-98) % ABG Base Excess (-2-3) mmol/L O2 Delivery Device Sodium (136-145) mmol/L Potassium (3.3-5.3) mmol/L Chloride (98-115) mmol/L Carbon Dioxide (21.0-32.0) mmol/L Anion Gap (5-15) mmol/L BUN (6-25) mg/dL Creatinine (0.51-1.17) mg/dL Est Cr Clr Drug Dosing mL/min Estimated GFR (MDRD) mL/min Glucose mg/dL POC Glucose 175 H (74-106) mg/dl Calcium (8.7-10.3) mg/dL Procalcitonin (<0.10) ng/mL Specimen Type Urine Color (YELLOW) Urine Appearance (CLEAR) Urine pH (5.0-9.0) Ur Specific [place] (1.005-1.030) Urine Protein (NEGATIVE) mg/dL Urine Glucose (UA) (NEGATIVE) mg/dL Urine Ketones (NEGATIVE) mg/dL Urine Occult Blood (NEGATIVE) Urine Nitrite (NEGATIVE) Urine Bilirubin (NEGATIVE) Urine Urobilinogen (0.2-1.0) E.U./dL Ur Leukocyte Esterase (NEGATIVE) Urine RBC /HPF Urine WBC /HPF Ur Epithelial Cells /LPF Urine Bacteria (NONE TO FEW) /HPF Nnamdi Results Last 24 Hours: Microbiology 01/26/18 11:23 MRSA (PCR) - Final Nasal, Unspecified 01/25/18 19:30 Aerobic Blood Culture - Preliminary Blood NO GROWTH AFTER 1 DAY Anaerobic Blood Culture - Preliminary NO GROWTH AFTER 1 DAY 01/25/18 18:20 Aerobic Blood Culture - Preliminary Blood NO GROWTH AFTER 1 DAY Anaerobic Blood Culture - Preliminary NO GROWTH AFTER 1 DAY Med Orders - Current: Current Medications Acetaminophen (Tylenol) 650 mg PO Q4H PRN PRN Reason: analgesia/fever Last Admin: 01/27/18 06:26 Dose: 650 mg Ceftriaxone Sodium (Rocephin) 1 gm IVPUSH Q24H [facility] Last Admin: 01/26/18 20:05 Dose: 1 gm Guaifenesin (Mucinex) 600 mg PO BID [facility] Last Admin: 01/27/18 08:08 Dose: 600 mg Guaifenesin/Phenylephrine HCl (Robitussin Dm) 10 ml PO Q4H PRN PRN Reason: Cough Azithromycin 500 mg/ Sodium (Chloride) 250 mls @ 250 mls/hr IV Q24H [facility] Last Admin: 01/26/18 20:11 Dose: 250 mls/hr Sodium Chloride (Normal Saline) 1,000 mls @ 100 mls/hr IV ASDIRECTED [facility] Last Admin: 01/27/18 08:14 Dose: 100 mls/hr Insulin Aspart (Novolog) 0 unit SUBCUT WITHMEALSANDBED [facility]; Protocol Last Admin: 01/27/18 08:10 Dose: 3 units Insulin Detemir (Levemir) 14 unit SUBCUT DAILY [facility] Last Admin: 01/27/18 08:08 Dose: 14 units Nicotine (Habitrol) 14 mg TRDERM DAILY PRN PRN Reason: Other Discontinued Medications Albuterol/Ipratropium (Duoneb 3.0-0.5 Mg/3 Ml) 3 ml NEB ONETIME ONE Stop: 01/25/18 18:38 Last Admin: 01/25/18 18:51 Dose: 3 ml Albuterol/Ipratropium (Duoneb 3.0-0.5 Mg/3 Ml) 3 ml NEB Q4HRRT PRN PRN Reason: Wheezing Albuterol/Ipratropium (Duoneb 3.0-0.5 Mg/3 Ml) 3 ml NEB QID [facility] Last Admin: 01/26/18 16:18 Dose: 3 ml Azithromycin (Zithromax 200 Mg/5 Ml Susp) 400 mg PO ONETIME ONE Stop: 01/25/18 19:36 Last Admin: 01/25/18 20:34 Dose: Not Given Azithromycin (Zithromax 200 Mg/5 Ml Susp) 400 mg PO ONETIME ONE Stop: 01/25/18 20:32 Last Admin: 01/25/18 21:26 Dose: Not Given Ceftriaxone Sodium (Rocephin) 1 gm IVPUSH ONETIME ONE Stop: 01/25/18 19:18 Last Admin: 01/25/18 20:33 Dose: Not Given Ceftriaxone Sodium (Rocephin) 1 gm IVPUSH ONETIME ONE Stop: 01/25/18 20:33 Last Admin: 08/06/18 21:01 Dose: 1 gm Azithromycin 500 mg/ Sodium (Chloride) 250 mls @ 250 mls/hr IV ONETIME ONE Stop: 01/25/18 21:49 Last Admin: 01/25/18 21:22 Dose: 250 mls/hr Azithromycin 500 mg/ Sodium (Chloride) 250 mls @ 250 mls/hr IV Q24H [facility] Insulin Aspart (Novolog) 10 unit SUBCUT ONETIME ONE Stop: 01/25/18 19:46 Last Admin: 01/25/18 20:23 Dose: 10 units Insulin Aspart (Novolog) 10 unit SUBCUT ONETIME ONE Stop: 01/25/18 21:54 Last Admin: 01/25/18 22:19 Dose: 10 units Insulin Aspart (Novolog) 15 unit SUBCUT ONETIME ONE Stop: 01/26/18 21:40 Last Admin: 01/26/18 21:45 Dose: 15 units Insulin Human Regular (Novolin R) 15 unit SUBCUT ONETIME ONE; Protocol Stop: 01/26/18 12:15 Last Admin: 01/26/18 12:29 Dose: 15 unit - Exam Quality Assessment: Supplemental Oxygen General: Alert, Oriented, Cooperative Lungs: Decreased Breath Sounds (Decreased breath sounds right middle to lower [place]). No: Rales, Wheezing Cardiovascular: Regular Rate, Regular Rhythm Extremities: No Pedal Edema Skin: Dry Psy/Mental Status: Alert, Normal Affect, Normal Mood - Problem List Review Problem List Initiated/Reviewed/Updated: Yes - My Orders Last 24 Hours: My Active Orders 01/26/18 10:45 Insulin Detemir [Levemir] 14 unit SUBCUT DAILY 01/26/18 11:00 Sodium Chloride 0.9% [Normal Saline] 1,000 ml IV ASDIRECTED 01/26/18 11:21 POC Glucose [Blood Glucose Check, Bedside] [RC] ONETIME 01/26/18 12:19 UA W/MICROSCOPIC [URIN] Routine 01/26/18 12:40 LEGIONELLA ANTIGEN [MREF] Routine 01/26/18 17:13 B PERTUSSIS IGG/M/A AB [REF] Routine 01/26/18 21:00 guaiFENesin [Mucinex] 600 mg PO BID 01/27/18 07:00 CXR [Chest 2V] [CR] Routine 01/27/18 07:35 HIV 1,2 AB/AG COMBO SCREEN [REF] Routine - Plan Plan:: HISTORY OF PRESENT ILLNESS This 37-year-old gentleman was admitted to the ED due to cough shortness of breath and suspected pneumonia. She stated he started getting sick with cough and fever approximate 6 days ago however not seek care due to the lack of insurance. Although he stated he felt better 2 days ago he suddenly became worse with ongoing cough, mucus production, shortness of breath fever and weakness. Patient lost 10 pounds past few days however denies vomiting he did have one or 2 episodes of diarrhea. He was admitted September 2015 [facility] due to RLL pneumonia. No ill contacts. Patient states this is the third time he has had pneumonia in recent years. [id number] history smoker quit last week. He does have a history of occupational reactive airway disease while working with fib[employer] however has been quite stable--denies ever being placed on occupational surveillance. He does travel around from job to job and recently moved from [place]. Patient does have type 1 diabetes mellitus due to lack of insurance having to switch to cheaper insulins admits to out-of- control blood sugars. Pertinent findings/workup in ED POX 80's White count 16.1, neutrophilia Chest x-ray early basilar pneumonia Tachycardia RR 22 Temperature, 100.4 D-dimer 124 Update this morning on rounds Patient feeling slightly better, blood glucose much improved dermal multiple doses of insulin, had significant copious amounts of sputum yesterday with nosebleed however improved after tamponade. Oxygen down to 1 L nasal cannula. Primary problems Pneumonia, POA, CAP Dehydration, moderate, insensible loss T1DM, poorly controlled, hemoglobin A1c> 10% Chronic problems Nicotine dependence, Habitrol MDM/plan Continue inpatient disposition, azithromycin along with beta-lactam IV antibiotics. Attempt to wean Oxygen, add ICS, needs improved glucose control both short and long-term start back on long-acting insulin Levimir reduce dose to 14 units, along with insulin 1 unit:CHO choice today, with individualized sliding scale. Avoid too tightly controlled while acutely ill. Blood cultures, sputum culture, PO and IV fluids, Add HIV testing, MRSA nasal swab procalcitonin and urine for Legionella. Pharmacy consultation regarding patient 's OTC insulin. Discuss with business office regarding insurance window. Labs in a.m., repeat chest x-ray after hydration in the morning. Discharge planning regarding patient's insulin. Assuming insurance coverage; --Lantus 20 units NovoLog 15 units TID/prandial coverage as a start however will likely need to be titrated up as outpatient. If No commercial insurance available --Humulin 70/30 vial 35 units BIDAC. However far from optimal
[2018-01-27] MEDS: Cetirizine 10 MG Tab PO SCH (10:06)
[2018-01-27] MEDS: cefTRIAXone 1 GM Vial IVPUSH SCH (20:14)
[2018-01-27] MEDS: Azithromycin 500 MG in Sodium Chloride 0.9% 250 ML IV SCH (20:15)
[2018-01-28] MEDS: guaiFENesin 600 MG Tab.ER PO SCH (08:02)
[2018-01-28] MEDS: Insulin Detemir 100 Units/ML 3 ML Pen SUBCUT SCH (08:02)
[2018-01-28] MEDS: Cetirizine 10 MG Tab PO SCH (08:02)
[2018-01-28] MEDS: Insulin Aspart 100 Units/ML 3 ML Pen SUBCUT SCH ×3 (08:03→17:51)
--- NOTE | 2018-01-28 10:00 | PCM.PN ---
- General Info Date of Service: 01/28/18 Functional Status: Reports: Pain Controlled, Tolerating Diet, Urinating, Incentive Spirometry - Review of Systems General: Reports: Fever (Grade), Appetite. Denies: Malaise, Chills, Night Sweats HEENT: Reports: Other (Epistaxis resolved) Pulmonary: Reports: Cough, Sputum. Denies: Pleuritic Chest Pain, Hemoptysis, Wheezing Cardiovascular: Reports: Dyspnea on Exertion Gastrointestinal: Reports: No Symptoms Genitourinary: Reports: No Symptoms Musculoskeletal: Reports: No Symptoms Skin: Reports: No Symptoms Neurological: Reports: No Symptoms Psychiatric: Reports: No Symptoms - Patient Data Vitals - Most Recent: Last Vital Signs Temp 98.7 F 01/28/18 06:16 Pulse 96 01/28/18 07:45 Resp 18 01/28/18 07:45 BP 132/76 01/28/18 06:16 Pulse Ox 94 L 01/28/18 07:45 Weight - Most Recent: 130 lb 8 oz I&O - Last 24 Hours: Intake & Output 01/27/18 01/28/18 01/28/18 22:59 06:59 14:59 Intake Total 1787 912 Output Total 800 650 Balance 987 262 Lab Results Last 24 Hours: Laboratory Results - last 24 hr 01/27/18 01/27/18 01/27/18 Range/Units 11:58 17:55 21:16 POC Glucose 289 H 192 H 292 H (74-106) mg/dl 01/28/18 Range/Units 07:45 POC Glucose 301 H (74-106) mg/dl Nnamdi Results Last 24 Hours: Microbiology 01/25/18 19:30 Aerobic Blood Culture - Preliminary Blood NO GROWTH AFTER 2 DAYS Anaerobic Blood Culture - Preliminary NO GROWTH AFTER 2 DAYS 01/25/18 18:20 Aerobic Blood Culture - Preliminary Blood NO GROWTH AFTER 2 DAYS Anaerobic Blood Culture - Preliminary NO GROWTH AFTER 2 DAYS 01/25/18 19:20 - Final Sputum - Expectorated 01/26/18 12:40 Legionella Urinary Antigen - Final Urine 01/26/18 11:23 MRSA (PCR) - Final Nasal, Unspecified Med Orders - Current: Current Medications Acetaminophen (Tylenol) 650 mg PO Q4H PRN PRN Reason: analgesia/fever Last Admin: 01/27/18 22:20 Dose: 650 mg Ceftriaxone Sodium (Rocephin) 1 gm IVPUSH Q24H [facility] Last Admin: 01/27/18 20:14 Dose: 1 gm Cetirizine HCl (Zyrtec) 10 mg PO DAILY [facility] Last Admin: 01/28/18 08:02 Dose: 10 mg Guaifenesin (Mucinex) 600 mg PO BID [facility] Last Admin: 01/28/18 08:02 Dose: 600 mg Guaifenesin/Phenylephrine HCl (Robitussin Dm) 10 ml PO Q4H PRN PRN Reason: Cough Azithromycin 500 mg/ Sodium (Chloride) 250 mls @ 250 mls/hr IV Q24H [facility] Last Admin: 01/27/18 20:15 Dose: 250 mls/hr Sodium Chloride (Normal Saline) 1,000 mls @ 100 mls/hr IV ASDIRECTED [facility] Last Admin: 01/27/18 17:58 Dose: 100 mls/hr Insulin Aspart (Novolog) 0 unit SUBCUT WITHMEALSANDBED [facility]; Protocol Last Admin: 01/28/18 08:03 Dose: 12 units Insulin Detemir (Levemir) 14 unit SUBCUT DAILY [facility] Last Admin: 01/28/18 08:02 Dose: 14 units Nicotine (Habitrol) 14 mg TRDERM DAILY PRN PRN Reason: Other Discontinued Medications Albuterol/Ipratropium (Duoneb 3.0-0.5 Mg/3 Ml) 3 ml NEB ONETIME ONE Stop: 01/25/18 18:38 Last Admin: 01/25/18 18:51 Dose: 3 ml Albuterol/Ipratropium (Duoneb 3.0-0.5 Mg/3 Ml) 3 ml NEB Q4HRRT PRN PRN Reason: Wheezing Albuterol/Ipratropium (Duoneb 3.0-0.5 Mg/3 Ml) 3 ml NEB QID [facility] Last Admin: 01/26/18 16:18 Dose: 3 ml Azithromycin (Zithromax 200 Mg/5 Ml Susp) 400 mg PO ONETIME ONE Stop: 01/25/18 19:36 Last Admin: 01/25/18 20:34 Dose: Not Given Azithromycin (Zithromax 200 Mg/5 Ml Susp) 400 mg PO ONETIME ONE Stop: 01/25/18 20:32 Last Admin: 01/25/18 21:26 Dose: Not Given Ceftriaxone Sodium (Rocephin) 1 gm IVPUSH ONETIME ONE Stop: 01/25/18 19:18 Last Admin: 01/25/18 20:33 Dose: Not Given Ceftriaxone Sodium (Rocephin) 1 gm IVPUSH ONETIME ONE Stop: 01/25/18 20:33 Last Admin: 01/25/18 21:01 Dose: 1 gm Azithromycin 500 mg/ Sodium (Chloride) 250 mls @ 250 mls/hr IV ONETIME ONE Stop: 01/25/18 21:49 Last Admin: 01/25/18 21:22 Dose: 250 mls/hr Azithromycin 500 mg/ Sodium (Chloride) 250 mls @ 250 mls/hr IV Q24H [facility] Insulin Aspart (Novolog) 10 unit SUBCUT ONETIME ONE Stop: 01/25/18 19:46 Last Admin: 01/25/18 20:23 Dose: 10 units Insulin Aspart (Novolog) 10 unit SUBCUT ONETIME ONE Stop: 01/25/18 21:54 Last Admin: 01/25/18 22:19 Dose: 10 units Insulin Aspart (Novolog) 15 unit SUBCUT ONETIME ONE Stop: 01/26/18 21:40 Last Admin: 01/26/18 21:45 Dose: 15 units Insulin Human Regular (Novolin R) 15 unit SUBCUT ONETIME ONE; Protocol Stop: 01/26/18 12:15 Last Admin: 01/26/18 12:29 Dose: 15 unit - Exam Quality Assessment: No: Supplemental Oxygen (Now off oxygen) General: Alert, Oriented, Cooperative Neck: Supple Lungs: Rhonchi (Slight much improved) Cardiovascular: Regular Rate, Regular Rhythm (Male) Exam: Deferred Extremities: No Pedal Edema Skin: Other (Dry skin) Psy/Mental Status: Alert, Normal Affect, Normal Mood - Problem List Review Problem List Initiated/Reviewed/Updated: Yes - My Orders Last 24 Hours: My Active Orders 01/27/18 09:06 Incentive Breathing [RT Incentive Spirometry] [RC] Q1HWA 01/27/18 10:00 Cetirizine [ZyrTEC] 10 mg PO DAILY 01/28/18 09:51 CBC WITH AUTO DIFF [HEME] Routine 01/29/18 05:15 CBC WITH AUTO DIFF [HEME] AM - Plan Plan:: HISTORY OF PRESENT ILLNESS This 37-year-old gentleman was admitted to the ED due to cough shortness of breath and suspected pneumonia. She stated he started getting sick with cough and fever approximate 6 days ago however not seek care due to the lack of insurance. Although he stated he felt better 2 days ago he suddenly became worse with ongoing cough, mucus production, shortness of breath fever and weakness. Patient lost 10 pounds past few days however denies vomiting he did have one or 2 episodes of diarrhea. He was admitted September 2015 [facility] due to RLL pneumonia. No ill contacts. Patient states this is the third time he has had pneumonia in recent years. [id number] history smoker quit last week. He does have a history of occupational reactive airway disease while working with [employer] however has been quite stable--denies ever being placed on occupational surveillance. He does travel around from job to job and recently moved from [place]. Patient does have type 1 diabetes mellitus due to lack of insurance having to switch to cheaper insulins admits to out-of- control blood sugars. Pertinent findings/workup in ED POX 80's White count 16.1, neutrophilia Chest x-ray early basilar pneumonia Tachycardia RR 22 Temperature, 100.4 D-dimer 124 Primary problems Pneumonia, POA, CAP Dehydration, moderate, insensible loss T1DM, poorly controlled, hemoglobin A1c> 10% Chronic problems Nicotine dependence, Habitrol MDM/plan Continue inpatient disposition, azithromycin along with beta-lactam IV antibiotics. No longer on oxygen, needs improved glucose control both short and long-term start back on long-acting insulin Levimir reduce dose to 14 units, along with insulin 1 unit:CHO choice today, with individualized sliding scale increased yesterday to high dose. Avoid too tightly controlled while acutely ill. BC surveillance negative so far, sputum culture negative, legionnaire antigen negative, HIV testing, MRSA nasal swab negative, significant elevated procalcitonin levels. Likely discharge tomorrow on PO antibiotics with close follow-up the clinic. No work until follow-up. Discharge planning regarding patient's insulin. Assuming insurance coverage; --Lantus 20 units NovoLog 15 units TID/prandial coverage as a start however will likely need to be titrated up as outpatient. If No commercial insurance available --Humulin 70/30 vial 35 units BIDAC. However far from optimal
[2018-01-28] MEDS: Sodium Chloride 0.9% 1,000 ML IV SCH (14:54)
[2018-01-28] MEDS: Acetaminophen 325 MG Tab PO PRN (15:01)
[2018-01-28] MEDS: cefTRIAXone 1 GM Vial IVPUSH SCH (16:22)
[2018-01-28] MEDS: Azithromycin 500 MG in Sodium Chloride 0.9% 250 ML IV SCH (16:46)
[2018-01-28 18:13] VITALS: BP 133/83
--- NOTE | 2018-02-03 08:56 | PCM.DCSUM1 ---
Discharge Summary - Hospital Course Diagnosis: Stroke: No - Discharge Data Discharge Date: 01/28/18 Discharge Disposition: Home, Self-Care 01 Condition: Good - Patient Instructions Diet: Drink 8-10+ Glasses/Day, Diabetic Diet Driving: May Drive Today Showering/Bathing: October Shower Notify Provider of: Fever, Nausea and/or Vomiting - Discharge Plan *PRESCRIPTION DRUG MONITORING PROGRAM REVIEWED*: Not Applicable *COPY OF PRESCRIPTION DRUG MONITORING REPORT IN PATIENT LIA: Not Applicable Prescriptions/Med Rec: Insulin Glarg,Human.Rec.Analog [Lantus Solostar] 20 unit SQ DAILY #15 ml Insulin NPH Hum/Reg Insulin Hm [Humulin 70-30 Vial] 25 units SQ BIDAC #20 ml Home Medications: Home Meds Insulin Aspart [Novolog] 100 unit SQ ASDIRECTED 01/25/18 [History] Insulin Glarg,Human.Rec.Analog [Lantus Solostar] 20 unit SQ DAILY #15 ml [Rx] Insulin NPH Hum/Reg Insulin Hm [Humulin 70-30 Vial] 25 units SQ BIDAC #20 ml 01/06 [Rx] Referrals: PCP,Unobtain [Ordering Only Provider] - Titi Arizmendi, [employer]PER[employer]OR [Nurse Practitioner] - (Follow up in one week at [facility]) - Discharge Summary/Plan Comment DC Time >30 min.: No Discharge Summary/Plan Comment: Final diagnosis Pneumonia, POA, CAP Dehydration, moderate, T1DM, poorly controlled, hemoglobin A1c> 10% Nicotine dependence, HISTORY This 37-year-old gentleman was admitted to the ED due to cough shortness of breath and suspected pneumonia. She stated he started getting sick with cough and fever approximate 6 days ago however not seek care due to the lack of insurance. Although he stated he felt better 2 days ago he suddenly became worse with ongoing cough, mucus production, shortness of breath fever and weakness. Patient lost 10 pounds past few days however denies vomiting he did have one or 2 episodes of diarrhea. He was admitted September 2015 [facility] due to RLL pneumonia. No ill contacts. Patient states this is the third time he has had pneumonia in recent years. [id number] history smoker quit last week. He does have a history of occupational reactive airway disease while working with [employer] however has been quite stable--denies ever being placed on occupational surveillance. He does travel around from job to job and recently moved from [place]. Patient does have type 1 diabetes mellitus due to lack of insurance having to switch to cheaper insulins admits to out-of- control blood sugars. Hospital course Issues hospital course went well he was treated with azithromycin along with beta-lactam IV antibiotics, he did require oxygen, he had significant hypoxemia in the emergency department with a white count of 16,000 with neutrophilia. Chest x-ray demonstrated early basilar pneumonia repeat chest x-ray confirmed initial diagnosis. He was tachycardia his temperature was 100.4. He had a low d-dimer. He did have significant elevated blood glucose levels in which she was treated with long-acting insulin, high dose sliding scale. He using incentive spirometer he was eventually being able to be weaned off of all oxygen. He had a significant elevated pro calcitonin level. I had desired to keep him one more day however due to poor insurance coverage he felt it was best interest to avoid the hospital stay. BC surveillance was negative, sputum culture negative, legionnaire antigen negative, HIV testing, MRSA nasal swab negative. He was discharged with oral antibiotics with close follow-up appointments. He was given self-care instructions at home with instructions to when to return. Insurance coverage plan Assuming insurance coverage; --Lantus 20 units NovoLog 15 units TID/prandial coverage as a start however will likely need to be titrated up as outpatient. If No commercial insurance available --Humulin 70/30 vial 35 units BIDAC. However far from optimal - Patient Data Vitals - Most Recent: Last Vital Signs Temp 98.5 F 01/28/18 18:11 Pulse 94 01/28/18 18:11 Resp 16 01/28/18 18:11 BP 133/83 01/28/18 18:11 Pulse Ox 93 L 01/28/18 18:11 Weight - Most Recent: 130 lb 8 oz Med Orders - Current: Current Medications Discontinued Medications Acetaminophen (Tylenol) 650 mg PO Q4H PRN PRN Reason: analgesia/fever Last Admin: 01/28/18 15:01 Dose: 650 mg Albuterol/Ipratropium (Duoneb 3.0-0.5 Mg/3 Ml) 3 ml NEB ONETIME ONE Stop: 01/25/18 18:38 Last Admin: 01/25/18 18:51 Dose: 3 ml Albuterol/Ipratropium (Duoneb 3.0-0.5 Mg/3 Ml) 3 ml NEB Q4HRRT PRN PRN Reason: Wheezing Albuterol/Ipratropium (Duoneb 3.0-0.5 Mg/3 Ml) 3 ml NEB QID [facility] Last Admin: 01/26/18 16:18 Dose: 3 ml Azithromycin (Zithromax 200 Mg/5 Ml Susp) 400 mg PO ONETIME ONE Stop: 01/25/18 19:36 Last Admin: 01/25/18 20:34 Dose: Not Given Azithromycin (Zithromax 200 Mg/5 Ml Susp) 400 mg PO ONETIME ONE Stop: 01/25/18 20:32 Last Admin: 01/25/18 21:26 Dose: Not Given Ceftriaxone Sodium (Rocephin) 1 gm IVPUSH ONETIME ONE Stop: 01/25/18 19:18 Last Admin: 01/25/18 20:33 Dose: Not Given Ceftriaxone Sodium (Rocephin) 1 gm IVPUSH ONETIME ONE Stop: 01/25/18 20:33 Last Admin: 01/25/18 21:01 Dose: 1 gm Ceftriaxone Sodium (Rocephin) 1 gm IVPUSH Q24H [facility] Last Admin: 01/28/18 16:22 Dose: 1 gm Cetirizine HCl (Zyrtec) 10 mg PO DAILY [facility] Last Admin: 01/28/18 08:02 Dose: 10 mg Guaifenesin (Mucinex) 600 mg PO BID [facility] Last Admin: 01/28/18 08:02 Dose: 600 mg Guaifenesin/Phenylephrine HCl (Robitussin Dm) 10 ml PO Q4H PRN PRN Reason: Cough Azithromycin 500 mg/ Sodium (Chloride) 250 mls @ 250 mls/hr IV ONETIME ONE Stop: 01/25/18 21:49 Last Admin: 01/25/18 21:22 Dose: 250 mls/hr Azithromycin 500 mg/ Sodium (Chloride) 250 mls @ 250 mls/hr IV Q24H [facility] Azithromycin 500 mg/ Sodium (Chloride) 250 mls @ 250 mls/hr IV Q24H [facility] Last Admin: 01/28/18 16:46 Dose: 250 mls/hr Sodium Chloride (Normal Saline) 1,000 mls @ 100 mls/hr IV ASDIRECTED [facility] Last Admin: 01/28/18 14:54 Dose: 100 mls/hr Insulin Aspart (Novolog) 10 unit SUBCUT ONETIME ONE Stop: 01/25/18 19:46 Last Admin: 01/25/18 20:23 Dose: 10 units Insulin Aspart (Novolog) 0 unit SUBCUT WITHMEALSANDBED [facility]; Protocol Last Admin: 01/28/18 17:51 Dose: Not Given Insulin Aspart (Novolog) 10 unit SUBCUT ONETIME ONE Stop: 01/25/18 21:54 Last Admin: 01/25/18 22:19 Dose: 10 units Insulin Aspart (Novolog) 15 unit SUBCUT ONETIME ONE Stop: 01/26/18 21:40 Last Admin: 01/26/18 21:45 Dose: 15 units Insulin Detemir (Levemir) 14 unit SUBCUT DAILY [facility] Last Admin: 01/28/18 08:02 Dose: 14 units Insulin Human Regular (Novolin R) 15 unit SUBCUT ONETIME ONE; Protocol Stop: 01/26/18 12:15 Last Admin: 01/26/18 12:29 Dose: 15 unit Nicotine (Habitrol) 14 mg TRDERM DAILY PRN PRN Reason: Other
== END 2018-01-28 20:10 | disposition home or self-care (01) | DRG 195 ==
LOC: KA.ED 18:00 → KA.MS 19:34
PROVIDERS: ADMIT Physician Assistant Surgical; ATTEND Family Medicine
DX: J18.9 Pneumonia, unspecified organism (principal); E10.40 Type 1 diabetes mellitus with diabetic neuropathy, unspecified; E10.65 Type 1 diabetes mellitus with hyperglycemia; E86.0 Dehydration; K21.9 Gastro-esophageal reflux disease without esophagitis; N18.9 Chronic kidney disease, unspecified; Z79.4 Long term (current) use of insulin; Z87.891 Personal history of nicotine dependence; R09.02 Hypoxemia; H91.90 Unspecified hearing loss, unspecified ear
CPT/HCPCS: 36415; 36600; 71046; 80048; 80053; 80061; 81001; 82803; 82947; 82962; 83036; 83605; 84145; 84443; 85025; 85379; 87040; 87070; 87186; 87205; 87389; 87641; 87798; 87899; 94640; 99283; 99285; A9270-GY; J0456; J0696; J1815-GY; J1817-GY; J7030; J7050; J7620-GY